=== PATIENT | female | born 1990 | race Hispanic/Latino ===

== ENCOUNTER 2018-05-08 23:50 | Emergency (ER) | payer OTHER ==
[2018-05-09] MEDS ORDERED: IPRATROPIUM/ALBUTEROL SULFATE 3 ML SOLUTION IH ONE (00:13)
[2018-05-09] MEDS ORDERED: DEXAMETHASONE SOD PHOSPHATE 4 MG/ML 1ML VIAL ONE (00:35)
== END 2018-05-09 01:08 | disposition home or self-care (01) ==
LOC: EDH 23:50
DX: J45.901 Unspecified asthma with (acute) exacerbation (principal); J04.0 Acute laryngitis; Z72.0 Tobacco use
CPT/HCPCS: 94640; 96372; 99283; J1100